=== PATIENT | male | born 1970 | race Two or more races ===

== ENCOUNTER 2018-02-13 23:38 | Emergency (ER) | payer OTHER ==
[~2018-02-13] VITALS: Ht 177.8 cm; Wt 68.0 kg
[2018-02-14 00:10] VITALS: BP 124/75
--- NOTE | 2018-02-14 00:19 | Emergency Room Report ---
History of Present Illness General Chief Complaint: Behavioral Complaint Source: Patient Present Illness HPI 47yo M Reports he was exposed to gonorrhea, previous girlfriend, he has no symptoms. He was just told earlier today so he came in to have an STD treatment. Patient History Past Medical History: see triage record Reviewed Nursing Documentation: PMH: Agreed; PSxH: Agreed Nursing Documentation-PMH Past Medical History: No Stated History Review of Systems Constitutional: Denies: fever Eye: Denies: acuity changes Respiratory: Denies: cough, shortness of breath Cardiovascular: Denies: chest pain Gastrointestinal: Denies: nausea, vomiting Skin: Denies: rash Neurological: Denies: headache Physical Exam Vital Signs Date Time Temp Pulse Resp B/P (MAP) Pulse Ox O2 Delivery O2 Flow Rate FiO2 02/13/18 23:50 98.2 110 16 124/75 96 Room Air 98.2 General Appearance: well appearing, no apparent distress Head: normocephalic, atraumatic ENT: hearing grossly normal, normal voice Neck: full range of motion, supple Respiratory: no respiratory distress, speaking full sentences Musculoskeletal: no calf tenderness Neurologic: alert, normal gait Psychiatric: mood/affect normal Skin: no rash Medical Decision Making Diagnostic Impression: Primary Impression: STI (sexually transmitted infection) ER Course Patient given Rocephin, sulfamycin, informed about getting tested for syphilis, HIV, avoiding intercourse for 2 weeks until test of cure be performed for chlamydia and gonorrhea Last Vital Signs Date Time Temp Pulse Resp B/P (MAP) Pulse Ox O2 Delivery O2 Flow Rate FiO2 02/13/18 23:50 98.2 110 16 124/75 96 Room Air 98.2 Disposition: HOME, SELF-CARE Condition: Stable Referrals: NOT CHOSEN [facility]/,REFERRING (PCP) ANUM WALSH M.D Feb 14, 2018 00:19
[2018-02-14 00:37] LABS: BASOPHILS % (AUTO) 2.5 % (0.0-2.0); EOSINOPHILS % (AUTO) 5.6 % (0.0-3.0); HEMATOCRIT 51.6 % (42.0-52.0); LYMPHOCYTES % (AUTO) 32.6 % (20.0-45.0); MEAN CORPUSCULAR VOLUME 94 FL (80-99); MONOCYTES % (AUTO) 12.4 % (1.0-10.0); NEUTROPHILS % (AUTO) 46.8 % (45.0-75.0); PLATELET COUNT 289 K/UL (150-450); WHITE BLOOD COUNT 5.8 K/UL (4.8-10.8)
[2018-02-14 00:49] LABS: ANION GAP 10 mmol/L (5-15); BLOOD UREA NITROGEN 8 mg/dL (7-18); CALCIUM 9.1 MG/DL (8.5-10.1); CARBON DIOXIDE 27 MMOL/L (21-32); CHLORIDE 105 MMOL/L (98-107); CREATININE 1.2 MG/DL (0.55-1.30); SODIUM 142 MMOL/L (136-145)
[2018-02-14 00:55] LABS: ALANINE AMINOTRANSFERASE 15 U/L (12-78); ALBUMIN 3.8 G/DL (3.4-5.0); ALBUMIN/GLOBULIN RATIO 1.1 (1.0-2.7); ALKALINE PHOSPHATASE 78 U/L (46-116); ASPARTATE AMINO TRANSFERASE 21 U/L (15-37); BILIRUBIN,TOTAL 0.4 MG/DL (0.2-1.0)
[2018-02-14 01:30] LABS: APPEARANCE,URINE CLEAR; BILIRUBIN, URINE NEGATIVE (NEGATIVE); COLOR,URINE PALE YELLOW; GLUCOSE, URINE (UA) NEGATIVE (NEGATIVE); KETONES,URINE NEGATIVE (NEGATIVE); LEUKOCYTE ESTERASE ,URINE NEGATIVE (NEGATIVE); NITRITE,URINE NEGATIVE (NEGATIVE); PH,URINE 5 (4.5-8.0); PROTEIN,URINE NEGATIVE (NEGATIVE); UROBILINOGEN,URINE NORMAL MG/DL (0.0-1.0)
--- NOTE | 2018-02-14 02:02 | Emergency Room Report ---
History of Present Illness General Chief Complaint: Behavioral Complaint Source: Patient Present Illness HPI 47yo M presents with a likely suicide attempt, he cut his left wrist with a kitchen knife, reports and it is clean, 1 asked his sternal harm himself and while he didn't, he does admit to on home himself, but does not want to answer questions about his motivation nor whether he was suicidal. He reports she's never tried this before, and he is notified hurt himself before, denies hallucinations, denies homicidal ideations, reports he was drinking alcohol last night but no drugs. Patient History Past Medical History: see triage record Reviewed Nursing Documentation: PMH: Agreed; PSxH: Agreed Nursing Documentation-PMH Past Medical History: No Stated History Review of Systems All Other Systems: negative except mentioned in HPI Physical Exam Vital Signs Date Time Temp Pulse Resp B/P (MAP) Pulse Ox O2 Delivery O2 Flow Rate FiO2 02/13/18 23:50 98.2 110 16 124/75 96 Room Air 98.2 Sp02 EP Interpretation: reviewed, normal General Appearance: no apparent distress, alert, non-toxic Head: normocephalic Eyes: bilateral eye normal inspection, bilateral eye PERRL, bilateral eye EOMI ENT: normal ENT inspection, hearing grossly normal, normal pharynx, no angioedema, normal voice, moist mucus membranes Neck: normal inspection, full range of motion, supple, supple/symm/no masses Respiratory: chest non-tender, lungs clear, normal breath sounds, chest symmetrical, palpation of chest normal Cardiovascular #1: normal peripheral pulses, regular rate, rhythm Cardiovascular #2: 2+ radial (R), 2+ radial (L) Gastrointestinal: normal inspection, non tender, soft, no mass, no guarding, no rebound Rectal: deferred Genitourinary: normal inspection, no CVA tenderness Musculoskeletal: back normal, gait/station normal, normal range of motion, non- tender, no calf tenderness Neurologic: alert, responsive, lead java developer architect III-XII nml as tested, motor strength/tone normal, sensory intact, speech normal Psychiatric: judgement/insight normal, memory normal, depressed affect Skin: normal color, no rash, warm/dry, normal turgor, laceration - Left wrist volar aspect with 4 centimeter superficial laceration, no visible tendons,, full range of motion wrist, no bleeding Lymphatic: no adenopathy Procedures Laceration/Wound Repair Laceration/Wound Repair : Consent: Verbal Wound Location: upper extremity Wound's Depth, Shape: superficial Wound Length (cm): 4 Wound Explored: clean Irrigated w/ Saline (ccs): 20 Anesthesia: 1% Lidocaine Volume Anesthetic (ccs): 3 Wound Debrided: minimal Wound Repaired With: sutures Suture Size/Type: 5:0, other - vicryl Number of Sutures: 4 Layer Closure?: No Sterile Dressing Applied?: Yes Splint Applied?: No Patient Tolerated: Well Complications: None - ebl 0 cc Medical Decision Making Diagnostic Impression: Primary Impression: Suicide and self-inflicted injury ER Course Patient is medically cleared, was given a tetanus booster, and had absorbable sutures used to repair wound. He is pending psychiatry evaluation. Last Vital Signs Date Time Temp Pulse Resp B/P (MAP) Pulse Ox O2 Delivery O2 Flow Rate FiO2 02/13/18 23:50 98.2 110 16 124/75 96 Room Air 98.2 Disposition: XFER TO PSYCH HOSP/UNIT Condition: Stable Referrals: NOT CHOSEN [facility]/,REFERRING (PCP) Patient Instructions: Ramu, ANUM Majano M.D Feb 14, 2018 02:02
[2018-02-14 04:10] VITALS: BP 121/72
[2018-02-14 07:45] VITALS: BP 120/80
[2018-02-14] MEDS ORDERED: WELLBUTRIN XL150 MG ORAL (07:59)
--- NOTE | 2018-02-14 08:05 | Emergency Room Report ---
Physical Exam Vital Signs Date Time Temp Pulse Resp B/P (MAP) Pulse Ox O2 Delivery O2 Flow Rate FiO2 02/13/18 23:50 98.2 110 16 124/75 96 Room Air 98.2 Medical Decision Making Diagnostic Impression: Primary Impression: Depression ER Course 8 am: I interviewed patient. He is alert and oriented. He is remorseful actions. Denies suicidal. He has good support at home. He has a psychiatrist whom he can contact and he also has a therapy appt. later today. He has been on Wellbutrin in the past. On exam he has sad mood and mildly restricted affect but he is cooperative, intelligent, cognitively intact and not suicidal. OK for d/c. I am giving Rx. for Wellbutrin 150 so he can start med beatriz. Last Vital Signs Date Time Temp Pulse Resp B/P (MAP) Pulse Ox O2 Delivery O2 Flow Rate FiO2 02/14/18 07:45 97.8 82 16 120/80 98 Room Air 97.8 Disposition: HOME, SELF-CARE Condition: Improved Scripts Bupropion Hcl* (WELLBUTRIN XL*) 150 Mg Tab.er.24h 150 MG ORAL DAILY for 30 Days, TAB 0 Refills Prov: Titi Salinas M.D. 02/14/18 Referrals: NOT CHOSEN [facility]/,REFERRING (PCP) Patient Instructions: Depression, Adult, [id number] Titi Salinas M.D. Feb 14, 2018 08:05
[2018-02-14] MEDS ORDERED: BuPROPion XL 150mg tab ORAL ONE (08:15)
[2018-02-14 08:38] VITALS: BP 120/80
== END 2018-02-14 08:40 | disposition home or self-care (01) ==
LOC: EDBD 23:38 → EMR 02-14 00:12
DX: S61.512A Laceration without foreign body of left wrist, initial encounter (principal); W26.0XXA Contact with knife, initial encounter; Y93.9 Activity, unspecified; Y92.019 Unspecified place in single-family (private) house as the place of occurrence of the external cause; R45.851 Suicidal ideations
CPT/HCPCS: 12002; 36415; 80053; 80307; 81003; 85025; 99284; G0480; 80329